=== PATIENT | male | born 1965 | race Caucasian/White ===

== ENCOUNTER 2020-10-14 13:15 | Emergency (ER) | payer OTHER ==
[~2020-10-14] VITALS: Ht 180.3 cm; Wt 90.3 kg
--- NOTE | 2020-10-14 14:43 | PHYS DOC ---
Past History Past Medical History: Hypertension, Migraines Additional Past Medical Histor: GASTRITIS General Adult EDM: Chief Complaint: VISION PROBLEM HPI: HPI: Patient is a 54 year old male with PMH of HTN and migraines who presents with 1 week of left-sided peripheral vision loss. States that he cannot see anything on his peripheral vision on the left side of either eye. His has noted he has been ignoring things on his left side such as items in the fridge, or when he is driving he tends to ride on the line. He has noticed that he has been a little bit more clumsy with items in his hands and has felt slightly unsteady when he stands. Symptoms have been constant since onset. Denies headache, diplopia, speech difficulty, extremity weakness weakness/numbness. No history of HLD, DM. No history of A. fib. Is on verapamil for migraine prevention and lisinopril for HTN. Not on any blood thinners. Review of Systems: Review of Systems: Constitutional: Denies fever or chills Eyes: No eye pain. + left sided vision loss. HENT: Denies nasal congestion or sore throat Respiratory: Denies cough or shortness of breath Cardiovascular: Denies chest pain or edema GI: Denies abdominal pain, nausea, vomiting, bloody stools or diarrhea : Denies dysuria Musculoskeletal: Denies back pain or joint pain Integument: Denies rash Neurologic: + left sided vision loss, clumsiness. Denies JORGENSEN, weakness, numbness, diplopia, speech difficulty. Endocrine: Denies polyuria or polydipsia Lymphatic: Denies swollen glands Psychiatric: Denies depression or anxiety Physical Exam: PE: Constitutional: Well developed, well nourished, no acute distress, non-toxic appearance. [] HENT: Normocephalic, atraumatic, bilateral external ears normal, oropharynx moist, no oral exudates, nose normal. [] Eyes: PERRLA, EOMI, conjunctiva normal, no discharge. [] Neck: Normal range of motion, no tenderness, supple, no stridor. [] Cardiovascular:Heart rate regular rhythm, no murmur [] Lungs & Thorax: Bilateral breath sounds clear to auscultation [] Abdomen: Bowel sounds normal, soft, no tenderness, no masses, no pulsatile masses. [] Skin: Warm, dry, no erythema, no rash. [] Back: No tenderness, no CVA tenderness. [] Extremities: No tenderness, no cyanosis, no clubbing, ROM intact, no edema. [] Neurologic: Alert. Follows commands. Speech normal. Face symmetric. Visual acuity intact. Left-sided homonymous hemianopia on confrontation. No extremity weakness or sensory deficit. No drift. Gait is stable, but tandem gait is unsteady. NIH = 2 for hemianopia. All other stroke scale items negative. [] Psychologic: Affect normal, judgement normal, mood normal. [] EKG: EKG: [] Radiology/Procedures: Radiology/Procedures: CTA head and neck [] Heart Score: C/O Chest Pain: N/A Risk Factors: Risk Factors: DM, Current or recent (<one month) smoker, HTN, HLP, family history of CAD, obesity. Risk Scores: Score 0 - 3: 2.5% MACE over next 6 weeks - Discharge Home Score 4 - 6: 20.3% MACE over next 6 weeks - Admit for Clinical Observation Score 7 - 10: 72.7% MACE over next 6 weeks - Early Invasive Strategies Course & Med Decision Making: Course & Med Decision Making Pertinent Labs and Imaging studies reviewed. (See chart for details) Patient 54-year-old male with history of HTN and migraines who presents with 1 week of left-sided vision loss. Exam consistent with homonymous hemianopia on the left. He also has some difficulty with tandem gait. Otherwise neurologically intact. Certainly concerning for stroke. Also could be a mass-effect. Less likely bleed given no headache. We will obtain CTA head and neck for initial evaluation. Not in acute stroke/TPA/IR candidate given delayed presentation. --- CT shows a right occipital parietal mass versus stroke. Will require MRI for further work-up. No large vessel occlusion seen on CTA. Accepted for transfer to [facility] by Dr. Garcia. Patient is agreeable with plan for transfer. [id number] Disclaimer: Sav Disclaimer: This electronic medical record was generated, in whole or in part, using a voice recognition dictation system. Departure Departure: Impression: Primary Impression: Left homonymous hemianopsia Additional Impression: Brain lesion Disposition: SHORT TERM HOSPITAL Condition: STABLE Referrals: PCP,UNKNOWN (PCP) SIMÓN LEBLANC MD Oct 14, 2020 14:43
[2020-10-14] MEDS ORDERED: IOHEXOL 350 MG/ML 100 ML VIAL. IV ONE (15:00)
[2020-10-14 15:04] LABS: BASO % 0 % (0-3); EOS # 0.3 x10^3/uL (0.0-0.7); EOS % 3 % (0-3); HEMATOCRIT 44.4 % (39.0-53.0); HEMOGLOBIN 14.9 g/dL (13.0-17.5); LYMPH # 2.5 x10^3/uL (1.0-4.8); LYMPH % 23 % (24-48); MEAN CORPUSCULAR HEMOGLOBIN 31 pg (25-35); MEAN CORPUSCULAR HGB CONC 34 g/dL (31-37); MEAN CORPUSCULAR VOLUME 91 fL (79-100); MONO # 0.8 x10^3/uL (0.0-1.1); MONO % 8 % (0-9); NEUT # 6.9 x10^3uL (1.8-7.7); NEUT % 66 % (31-73); PLATELET COUNT 274 x10^3/uL (140-400); RED BLOOD COUNT 4.87 x10^6/uL (4.30-5.70); RED CELL DISTRIBUTION WIDTH 13.3 % (11.5-14.5); WHITE BLOOD COUNT 10.5 x10^3/uL (4.0-11.0)
--- NOTE | 2020-10-14 15:09 | EKG ---
[address] [address] Test Date: 2020-10-14 Test Time: 14:53:27 Pat Name: SHANE CONTEH Department: Room: Gender: M Group Home Manager: VERONIKA : 1965 Requested By: SIMÓN LEBLANC Order Number: [id number] Reading MD: Measurements Intervals Entiat Rate: 70 P: 28 VA: 150 QRS: 3 QRSD: 96 T: 9 QT: 378 QTc: 411 Interpretive Statements SINUS RHYTHM NORMAL ECG RI6.02 No previous ECG available for comparison
[2020-10-14 15:13] LABS: GFR 77.3; POTASSIUM 4.1 mmol/L (3.5-5.1)
[2020-10-14 15:18] LABS: ALBUMIN 3.8 g/dL (3.4-5.0); ALBUMIN/GLOBULIN RATIO 1.2 (1.0-1.7); TOTAL BILIRUBIN 0.4 mg/dL (0.2-1.0)
--- NOTE | 2020-10-14 15:56 | RAD ---
CT HEAD/BRAIN WO, CTA HEAD AND NECK W/WO CONTRAST History: LEFT SIDE HOMONOMOUS HEMIANOPIA Technique: Noncontrast head CT was performed in correlation with this exam. After bolus of intravenou s contrast, volumetric CT data acquisition was acquired of the head and neck. Multiplanar reconstruct ion images to include MIP and 3-D reconstruction images are submitted. Comparison: None Any determination of stenosis is based on NASCET criteria. Noncontrast CT head: There is a approximately 3 cm diameter hypodense focus with lateral margin increased density in the r ight occipital lobe with surrounding white matter edema. There is no midline shift. Perhaps mild mass effect on the posterior horn of the right lateral ventricle. Extra-axial spaces are unremarkable. Imaged orbits are unremarkable. Imaged paranasal sinuses and mastoid air cells are clear. Head CTA: ICA: No stenosis, occlusion or aneurysm. MCA: No stenosis, occlusion or aneurysm. [facility]: No stenosis, occlusion or aneurysm. [facility]: No stenosis, occlusion or aneurysm. Basilar artery: No stenosis, occlusion or aneurysm. Distal vertebral arteries: No stenosis, occlusion or aneurysm. CT angiogram neck: Aortic arch: No aneurysm or dissection. Common carotid arteries: No stenosis, occlusion or dissection. Mild bilateral carotid bulb calcificat ion. Internal carotid arteries: No stenosis, occlusion or dissection. External carotid arteries: Patent Vertebral arteries: No stenosis, occlusion or dissection. Imaged lung apices are unremarkable. Soft tissues appear normal. Bones: No pathologic osseous lesions. Mild C5-C6 and C6-C7 degenerative changes. Impression: 1. Right occipital rounded mixed hypo and hyperdense lesion measuring approximately 3 cm with surrou nding edema of the subcortical and deep white matter. This may represent a right occipital lobe infar ction with surrounding cytotoxic edema, however there is concern for right occipital mass with vasoge ranjan edema. Recommend MRI for further evaluation. Correlate for history of malignancy. 2. No significant stenosis, aneurysm or occlusion in the cervical and intracranial arteries. Exposure: One or more of the following individualized dose reduction techniques were utilized for thi s examination: 1. Automated exposure control 2. Adjustment of the mA and/or kV according to patient size 3. Use of iterative reconstruction technique. Findings discussed with Rayshawn Villarreal at 10/14/2020 3:40 PM. FOR INTERNAL CODING PURPOSES RESULT CODE: (C) Electronically signed by: Johan Gonzalez MD (10/14/2020 3:54 PM) [id number]
[2020-10-14 18:55] VITALS: BP 146/79
== END 2020-10-14 19:57 | disposition short-term general hospital (02) ==
LOC: ER 13:15
DX: H53.462 Homonymous bilateral field defects, left side (principal); G93.9 Disorder of brain, unspecified; I10 Essential (primary) hypertension
CPT/HCPCS: 36415; 70450; 70496; 70498; 80053; 84484; 85025; 93005; 99285; Q9967